=== PATIENT | female | born 1945 | race American Indian/Alaskan Native ===

== ENCOUNTER 2021-05-25 15:18 | Emergency (ER) | payer MEDICARE ==
[~2021-05-25 15:18] MED LIST: EPINEPHrine 1 MG/10 ML SYRINGE ONE; SODIUM BICARB 8.4% 50 MEQ/50 ML SYRINGE IV ONE
--- NOTE | 2021-05-25 17:18 | Emergency Department Report ---
ED CPR HPI - General Chief Complaint: Cardiac Arrest/CPR Stated Complaint: CARDIAC ARREST Time Seen by Provider: 05/25/21 15:43 Source: EMS Mode of arrival: Stretcher Limitations: Other - History of Present Illness Initial Comments: Patient is a 75-year-old F [place] female with past medical history of congestive heart failure COPD who had paramedics called for respiratory distress who then went into cardiopulmonary arrest. Respiratory distress patient had paramedics called because she was having trouble breathing. Paramedics were attempted to put her on CPAP when the patient lost her pulse. 3 rounds of epinephrine were given on route. Patient was asystole with a few episodes of PEA in route. Patient is unable to give any additional history at this time. Her daughter states that she was set to get a defibrillator in the next several days to weeks ED Review of Systems ROS: Stated complaint: CARDIAC ARREST Other details as noted in HPI Comment: All other systems reviewed and negative ED Physical Exam - General Limitations: Other General appearance: obtunded - Head Head exam: Present: atraumatic, normocephalic - Eye Eye exam: Present: other - ENT ENT exam: Present: mucous membranes moist, other (Large amount of yellow gastric contents in the posterior pharynx and mouth) - Neck Neck exam: Present: normal inspection - Respiratory Respiratory exam: Present: other (No spontaneous breath sounds. After intubation loud rhonchi with bagging) - Cardiovascular Cardiovascular Exam: Present: other (No spontaneous heart tones) - GI/Abdominal GI/Abdominal exam: Present: soft, normal bowel sounds - Extremities Exam Extremities exam: Present: normal inspection - Back Exam Back exam: Present: normal inspection - Neurological Exam Neurological exam: Present: other (GCS of 15) - Skin Skin exam: Present: warm, dry, intact, normal color. Absent: rash ED Medical Decision Making - Medical Decision Making On arrival patient had a [place] airway. This was removed and intubated patient was a 7.5 endotracheal tube. There is good color change on CO2 monitor. CPR was continued. Patient given several rounds of epinephrine bicarb. Glucose is within normal limits. Unable to successfully resuscitate the patient. Patient pronounced . Critical care attestation.: If time is entered above; I have spent that time in minutes in the direct care of this critically ill patient, excluding procedure time. ED Disposition Clinical Impression: Cardiopulmonary arrest Disposition: 20 Is pt being admited?: No Does the pt Need Aspirin: No Condition: Stable Time of Disposition: 17:22
== END 2021-05-25 19:06 ==
LOC: ED 15:18
DX: I46.9 Cardiac arrest, cause unspecified (principal)
CPT/HCPCS: 31500; 92950; 99285; J0171